=== PATIENT | female | born 1995 | race Caucasian/White ===

== ENCOUNTER → 2019-04-14 09:15 | Outpatient (CLI) | payer OTHER, SELFPAY ==
--- NOTE | 2019-04-14 | DI.NM.S_ITS ---
PROCEDURE: NM GASTRIC EMPTYING STUDY RADIOPHARMACEUTICAL: 1.0 mCi Tc-99m sulfur colloid in an egg sandwich. INDICATIONS: NAUSEA AND VOMITING TECHNIQUE: A Tc-99m labeled sulfur colloid labeled egg sandwich or oatmeal was served to the patient. Anterior and posterior planar images of the abdomen were obtained at 0 minutes and 30 minutes, then at hourly intervals up to 4 hours. The patient was upright and ambulating during the interval. COMPARISON: None. FINDINGS: The stomach has normal size, morphology, and position. There is normal emptying of solid gastric contents from the stomach by visual inspection. No gastroesophageal reflux is visualized. The percentage of tracer retained at specific time points are as follows: Time point Percent gastric retention Normal range 30 minutes 68% 70% or more 1 hour 48% 30% to 90% 2 hours 21% 60% or less 3 hours 10% 30% or less IMPRESSION: Normal gastric emptying study, no reflux seen. Dictated by: Bruce Farah M.D. on 04/14/2019 at 14:26 Approved by: Bruce Farah M.D. on 04/14/2019 at 14:30
== END ==
PROVIDERS: Visit Provider Internal Medicine Gastroenterology
DX: R11.2 Nausea with vomiting, unspecified (principal)
CPT/HCPCS: 78264; A9541